=== PATIENT | female | born 2000 | race Caucasian/White ===

== ENCOUNTER 2023-09-21 21:52 | Observation (INO) | payer BC ==
[2023-09-21] MEDS ORDERED: SODIUM CHLORIDE 0.9% 1,000 ML IV STA (22:08)
[2023-09-21] MEDS ORDERED: ONDANSETRON 4 MG/2 ML VIAL IVP STA (22:13)
[2023-09-21] MEDS ORDERED: MORPHINE SULFATE 4 MG/ML SYRINGE IV STA (22:13)
[2023-09-21] MEDS ORDERED: RX INFO: IV CONTRAST WAS GIVEN 1 EACH MISC MISCELLANE PRN (22:26)
--- NOTE | 2023-09-21 22:41 | ED ---
Trauma HPI - General Source: patient Mode of arrival: wheelchair Limitations: no limitations - History of Present Illness MD Complaint: injury <Laurent Hernandes - Last Filed: 09/21/23 23:46> <Bobby Khan - Last Filed: 09/22/23 07:25> - General Chief Complaint: Chest Pain Stated Complaint: Abd injury, kicked by horse Time Seen by Provider: 09/21/23 22:08 - History of Present Illness Initial Comments: This is a 23-year-old female presents to the emergency department complaining of pain to her anterior chest wall. Patient was kicked by worse 1 hour prior to arrival. Patient states the horse got it and ended up kicking backwards. There injury. There is no head or neck injury. Denying abdominal pain. States the pain is sharp, located in the sternal area. Exacerbated by movement and breathing. No nausea or vomiting. No neck pain. No back pain. No bleeding disorders. No significant past medical history. Nonsmoker (Laurent Hernandes) - Related Data Allergies Allergy/AdvReac Type Severity Reaction Status Date / Time No Known Allergies Allergy Verified 09/21/23 21:59 Review of Systems ROS Other: All systems not noted in ROS Statement are negative. <CecilioLaurent - Last Filed: 09/21/23 23:46> ROS Other: All systems not noted in ROS Statement are negative. <Bobby Khan - Last Filed: 09/22/23 07:25> ROS Statement: Those systems with pertinent positive or pertinent negative responses have been documented in the HPI. Past Medical History Past Medical History: No Reported History History of Any Multi-Drug Resistant Organisms: None Reported Past Surgical History: No Surgical Hx Reported Past Psychological History: No Psychological Hx Reported Smoking Status: Never smoker Past Alcohol Use History: None Reported Past Drug Use History: None Reported <Laurent Hernandes - Last Filed: 09/21/23 23:46> General Exam Limitations: no limitations General appearance: alert, in distress Head exam: Present: atraumatic, normocephalic, normal inspection Eye exam: Present: normal appearance, PERRL, EOMI. Absent: scleral icterus, conjunctival injection, periorbital swelling ENT exam: Present: normal exam, mucous membranes moist, normal external ear exam. Absent: mucous membranes dry Neck exam: Present: normal inspection, full ROM. Absent: tenderness, meningismus, lymphadenopathy Respiratory exam: Present: normal lung sounds bilaterally, chest wall tenderness, other (Patient has superficial abrasions overlying the anterior chest to the bilateral parasternal injury on the superior aspect of both breasts. There is some ecchymosis. No crepitus. Tender to palpation.). Absent: respiratory distress, wheezes, rales, rhonchi, stridor, accessory muscle use, decreased breath sounds, prolonged expiratory Cardiovascular Exam: Present: regular rate, normal rhythm, normal heart sounds. Absent: systolic murmur, diastolic murmur, rubs, gallop, clicks GI/Abdominal exam: Present: soft, normal bowel sounds. Absent: distended, tenderness, guarding, rebound, rigid Extremities exam: Present: normal inspection, full ROM, normal capillary refill. Absent: tenderness, pedal edema, joint swelling, calf tenderness Back exam: Present: normal inspection Neurological exam: Present: alert, oriented X3, CN II-XII intact Psychiatric exam: Present: normal affect, normal mood Skin exam: Present: warm, dry, intact, normal color. Absent: rash <Laurent Hernandes - Last Filed: 09/21/23 23:46> - General Exam Comments Initial Comments: Vital signs stable, patient afebrile. Patient does not appear to be ill or toxic. Cranial nerves II through XII grossly intact. Alert and oriented 4. Thornton Coma Scale is 15. (Laurent Hernandes) Course <Laurent Hernandes - Last Filed: 09/21/23 23:46> Vital Signs 09/21/23 09/21/23 09/21/23 22:00 22:37 23:30 Temperature 97.6 F Pulse Rate 88 87 97 Respiratory 18 16 18 Rate Blood Pressure 118/80 122/73 116/72 O2 Sat by Pulse 98 100 100 Oximetry 09/22/23 09/22/23 09/22/23 00:00 01:00 05:46 Temperature Pulse Rate 105 H 93 87 Respiratory 20 20 18 Rate Blood Pressure 111/68 117/72 106/61 O2 Sat by Pulse 100 Oximetry - Reevaluation(s) Reevaluation #1: 09/21/23 23:25 Patient reevaluated, seems to be somewhat improved as far as pain. Patient's test did come out positive. Especially with the patient, her boy friend, as well as mother. Discussed the results of the serum test. Discussed radiation exposure, discussed the possibility of misdiagnosis without computed tomography scan. After long discussion with this. Benefits of CT scanning and imaging.. The patient and mother are requesting computed tomography scan be proceeded with. Patient was accompanied to the medical medical decisions. Discussed risks versus benefits in detail. (Laurent Hernandes) Procedures - FAST Exam Fluid in Morison's pouch: No Fluid in Splenorenal Junction: No Fluid around bladder, Transverse view: No Fluid around bladder, Sagittal view: No Limited Echocardiogram view: parasternal, subxiphoid Fluid in Pericardial Sac: No Gross Wall Motion Abnormality: No Study normal for this patient: Yes Images saved for further review: No <Laurent Hernandes - Last Filed: 09/21/23 23:46> - FAST Exam Additional Comments: Performed by me (Laurent Hernandes) Medical Decision Making - Lab Data Result diagrams: 09/21/23 22:22 09/21/23 22:22 <Laurent Hernandes - Last Filed: 09/21/23 23:46> - Lab Data Result diagrams: 09/21/23 22:22 09/21/23 22:22 <Bobby Khan - Last Filed: 09/22/23 07:25> - Medical Decision Making Was pt. sent in by a medical professional or institution? @ -[no Did you speak to anyone other than the patient for history? @ -Parents Did you review nursing and triage notes? @ -Agree Were old charts reviewed? @ -no Differential Diagnosis? @ -Differential diagnosis includes but not limited to: Sternal fracture, cartilaginous injury, chest contusion, pericardial injury, myocardial injury, cardiac tamponade, pneumothorax, given the patient's presentation, chest wall contusion most likely. EKG interpreted by me (3pts min.)? @ -[EKG independently interpreted by me at 2217 reveals sinus rhythm with a rate of 93. Baseline artifact, normal axis, normal intervals, no acute ST or T- wave changes. Normal QRS amplitude. Normal QRS morphology. No comparison study reviewed with ED attending physician. X-rays interpreted by me (1pt min.)? @ -[none] CT interpreted by me (1pt min.)? @ -[none] U/S interpreted by me (1pt. min.)? @ -[none] What testing was considered but not performed? (CT, X-rays, U/S, labs)? Why? @ [CT, X-rays, U/S, labs? Why?] What meds were considered but not given? Why? @ -[none] Did you discuss the management of the patient with other professionals? @ -[professionals i.e. Dr, PA, BAKER APPRENTICE, Lab, RT, Psych Nurse, Chemical Laboratory Assistant, Dental Patient Coordinator, Teacher, Drug Discovery Informatics Specialist, case operator? Give summary] Did you reconcile home meds? @ -[none] Was smoking cessation discussed for >3mins.? @ -[none] Was critical care preformed (if so, how long)? @ -[none] Were there social determinants of health that impacted care today? How? (Homelessness, low income, unemployed, alcoholism, drug addiction, transportation, low edu. Level, literacy, decrease access to med. care, halfway, rehab)? @ -[Homelessness, low income, unemployed, alcoholism, drug addiction, transportation, low edu. Level, literacy, decrease access to med. care, halfway, rehab?] Was there de-escalation of care discussed even if they declined? (Discuss DNR or withdrawal of care, Hospice)? @ -[Discuss DNR or withdrawal of care, Hospice?] What co-morbidities impacted this encounter? (DM, HTN, Smoking, COPD, CAD, Cancer, CVA, Hep., AIDS, mental health diagnosis, sleep apnea, morbid obesity)? @ -[DM, HTN, Smoking, COPD, CAD, Cancer, CVA, Hep., AIDS, mental health diagnosis, sleep apnea, morbid obesity?] Was patient admitted / discharged? @ -[hospital course] Undiagnosed new problem with uncertain prognosis? @ -[none] Drug Therapy requiring intensive monitoring for toxicity (Heparin, Nitro, Insulin, Cardizem)? @ -[none] Were any procedures done? @ -[none] Diagnosis/symptom? @ -[default] Acute, or Chronic, or Acute on Chronic? @ -[default] Uncomplicated (without systemic symptoms) or Complicated (systemic symptoms)? @ -[default] Side effects of treatment? @ -[none] Exacerbation, Progression, or Severe Exacerbation] @ -[no] Poses a threat to life or bodily function? @ -[no] Case discussed in detail with Dr. Khan. Patient will be endorsed to him for further evaluation, treatment, and disposition. (Laurent Hernandes) Receive this patient as sign out pending results of the computed tomography scan. After the computed tomography scan was completed, patient found to have sternal fracture, small amount of blood in anterior mediastinum and trace pneumothorax. Case is discussed with cardiothoracic surgery, they would like patient admitted to have echocardiogram and serial troponins, patient be admitted under surgery with CT consult. (Bobby Khan) - Lab Data Lab Results 09/21/23 09/21/23 09/21/23 Range/Units 22:22 22:22 22: WBC 7.9 (3.8-10.6) k/uL RBC 4.09 (3.80-5.40) m/uL Hgb 12.3 (11.4-16.0) gm/dL Hct 35.4 (34.0-46.0) % MCV 86.5 (80.0-100.0) fL MCH 30.0 (25.0-35.0) pg MCHC 34.7 (31.0-37.0) g/dL RDW 12.0 (11.5-15.5) % Plt Count 170 (150-450) k/uL MPV 8.3 Neutrophils % 69 % Lymphocytes % 22 % Monocytes % 6 % Eosinophils % 2 % Basophils % 0 % Neutrophils # 5.5 (1.3-7.7) k/uL Lymphocytes # 1.7 (1.0-4.8) k/uL Monocytes # 0.5 (0-1.0) k/uL Eosinophils # 0.1 (0-0.7) k/uL Basophils # 0.0 (0-0.2) k/uL PT 11.3 (10.0-12.5) sec INR 1.0 (<1.2) APTT 21.5 L (22.0-30.0) sec Sodium 134 L (137-145) mmol/L Potassium 3.6 (3.5-5.1) mmol/L Chloride 101 (98-107) mmol/L Carbon Dioxide 23 (22-30) mmol/L Anion Gap 10 mmol/L BUN 14 (7-17) mg/dL Creatinine 0.79 (0.52-1.04) mg/dL Est GFR (CKD-EPI)AfAm >90 (>60 ml/min/1.73 sqM) Est GFR (CKD-EPI)NonAf >90 (>60 ml/min/1.73 sqM) Glucose 109 H (74-99) mg/dL Calcium 9.1 (8.4-10.2) mg/dL Magnesium 1.8 (1.6-2.3) mg/dL Total Bilirubin 0.7 (0.2-1.3) mg/dL AST 24 (14-36) U/L ALT 19 (4-34) U/L Alkaline Phosphatase 40 (38-126) U/L Troponin I (0.000-0.034) ng/mL Total Protein 6.8 (6.3-8.2) g/dL Albumin 4.1 (3.5-5.0) g/dL Lipase 171 (23-300) U/L HCG, Qual Detected 09/21/23 Range/Units 22:22 WBC (3.8-10.6) k/uL RBC (3.80-5.40) m/uL Hgb (11.4-16.0) gm/dL Hct (34.0-46.0) % MCV (80.0-100.0) fL MCH (25.0-35.0) pg MCHC (31.0-37.0) g/dL RDW (11.5-15.5) % Plt Count (150-450) k/uL MPV Neutrophils % % Lymphocytes % % Monocytes % % Eosinophils % % Basophils % % Neutrophils # (1.3-7.7) k/uL Lymphocytes # (1.0-4.8) k/uL Monocytes # (0-1.0) k/uL Eosinophils # (0-0.7) k/uL Basophils # (0-0.2) k/uL PT (10.0-12.5) sec INR (<1.2) APTT (22.0-30.0) sec Sodium (137-145) mmol/L Potassium (3.5-5.1) mmol/L Chloride (98-107) mmol/L Carbon Dioxide (22-30) mmol/L Anion Gap mmol/L BUN (7-17) mg/dL Creatinine (0.52-1.04) mg/dL Est GFR (CKD-EPI)AfAm (>60 ml/min/1.73 sqM) Est GFR (CKD-EPI)NonAf (>60 ml/min/1.73 sqM) Glucose (74-99) mg/dL Calcium (8.4-10.2) mg/dL Magnesium (1.6-2.3) mg/dL Total Bilirubin (0.2-1.3) mg/dL AST (14-36) U/L ALT (4-34) U/L Alkaline Phosphatase (38-126) U/L Troponin I <0.012 (0.000-0.034) ng/mL Total Protein (6.3-8.2) g/dL Albumin (3.5-5.0) g/dL Lipase (23-300) U/L HCG, Qual Disposition <Laurent Hernandes - Last Filed: 09/21/23 23:46> Is patient prescribed a controlled substance at d/c from ED?: No <Bobby Khan - Last Filed: 09/22/23 07:25> Clinical Impression: Blunt chest trauma, Fracture, sternum closed, Pneumothorax Disposition: ADMITTED IP TO THIS HOSP Condition: Fair
[2023-09-21 22:47] LABS: Basophils % (A) 0 %; Eosinophils % (A) 2 %; HCT 35.4 % (34.0-46.0); HGB 12.3 gm/dL (11.4-16.0); Lymphocytes # (A) 1.7 k/uL (1.0-4.8); Lymphocytes % (A) 22 %; MCHC 34.7 g/dL (31.0-37.0); MCV 86.5 fL (80.0-100.0); Mean Platelet Volume 8.3; Monocytes % (A) 6 %; Neutrophils # (A) 5.5 k/uL (1.3-7.7); Neutrophils % (A) 69 %; Platelet Count 170 k/uL (150-450); RBC 4.09 m/uL (3.80-5.40); WBC 7.9 k/uL (3.8-10.6)
[2023-09-21 22:48] LABS: Eosinophils # (A) 0.1 k/uL (0-0.7); Monocytes # (A) 0.5 k/uL (0-1.0)
[2023-09-21 22:56] LABS: HCG,Qualitative Serum Detected
[2023-09-21 22:57] LABS: ALT 19 U/L (4-34); AST 24 U/L (14-36); African American GFR (CKD) >90 (>60 ml/min/1.73 sqM); Albumin 4.1 g/dL (3.5-5.0); Alkaline Phosphatase 40 U/L (38-126); Anion Gap 10 mmol/L; Blood Urea Nitrogen 14 mg/dL (7-17); Calcium 9.1 mg/dL (8.4-10.2); Carbon Dioxide 23 mmol/L (22-30); Chloride 101 mmol/L (98-107); Glucose 109 mg/dL (74-99); Lipase 171 U/L (23-300); Magnesium 1.8 mg/dL (1.6-2.3); Non-African American GFR(CKD) >90 (>60 ml/min/1.73 sqM); Potassium 3.6 mmol/L (3.5-5.1); Sodium 134 mmol/L (137-145); Total Bilirubin 0.7 mg/dL (0.2-1.3); Total Protein 6.8 g/dL (6.3-8.2)
[2023-09-21 23:06] LABS: Prothrombin Time 11.3 sec (10.0-12.5)
[2023-09-21 23:07] LABS: Partial Thromboplastin Time 21.5 sec (22.0-30.0)
[2023-09-22] MEDS ORDERED: MORPHINE SULFATE 4 MG/ML SYRINGE IVP STA (01:18)
--- NOTE | 2023-09-22 01:49 | CT ---
EXAM: CT Chest With Intravenous Contrast CLINICAL HISTORY: ITS.REASON CT Reason: chest wall trauma TECHNIQUE: Axial computed tomography images of the chest with intravenous contrast. CTDI is 5.5 mGy and DLP is 245.6 mGy-cm. This CT exam was performed using one or more of the following dose reduction techniques: automated exposure control, adjustment of the mA and/or kV according to patient size, and/or use of iterative reconstruction technique. COMPARISON: None FINDINGS: Lungs: Linear densities with surrounding groundglass opacities extending vertically throughout the medial anterior aspects of the upper lobes. Injury such as laceration could not be excluded. Pleural space: Trace right apical pneumothorax. No significant effusion. Heart: Unremarkable. No cardiomegaly. No significant pericardial effusion. No significant coronary artery calcifications. Mediastinum: Small amount of blood in the anterior mediastinum. Bones/joints: Nondisplaced acute fracture of the sternum. No dislocation. Soft tissues: Mild soft tissue swelling overlying the sternum. Vasculature: Unremarkable. No thoracic aortic aneurysm. Lymph nodes: Unremarkable. No enlarged lymph nodes. IMPRESSION: 1. Nondisplaced acute fracture of the sternum. Small amount of blood in the anterior mediastinum. Mild soft tissue swelling overlying the sternum. 2. Trace right apical pneumothorax. 3. Linear densities with surrounding groundglass opacities extending vertically throughout the medial anterior aspects of the upper lobes. Injury such as laceration could not be excluded. <MYCVCSECTION> Communications: 09/22/23 01:50 Call Doctor Regarding Pneumothorax, called Dr. Manrique on 09/22 01:50 (-05:00)
[2023-09-22] MEDS ORDERED: ONDANSETRON 4 MG/2 ML VIAL IVP PRN (05:25)
[2023-09-22] MEDS ORDERED: NALOXONE 0.4 MG/ML 1 ML VIAL IV PRN (05:25)
[2023-09-22] MEDS ORDERED: MORPHINE SULFATE 4 MG/ML SYRINGE IV STA (05:29)
[2023-09-22] MEDS: SODIUM CHLORIDE 0.9% 1,000 ML IV SCH ×2 (08:27→18:12)
[2023-09-22] MEDS: MORPHINE SULFATE 4 MG/ML SYRINGE IV PRN ×2 (08:32→13:40)
--- NOTE | 2023-09-22 09:39 | P.GSHP ---
History of Present Illness H&P Date: 09/22/23 Chief Complaint: Sternal fracture This is a 23-year-old female who was admitted through the emergency room last night when Dr. Murphy was on-call. Patient was kicked by a horse. She was worked up emergency room found have evidence of a sternal fracture. Patient's troponins have been trending downwards. Patient will be seen by [place] thoracic surgery today. Past Medical History Past Medical History: No Reported History History of Any Multi-Drug Resistant Organisms: None Reported Past Surgical History: No Surgical Hx Reported Past Psychological History: No Psychological Hx Reported Smoking Status: Never smoker Past Alcohol Use History: None Reported Past Drug Use History: None Reported Medications and Allergies Allergies Allergy/AdvReac Type Severity Reaction Status Date / Time No Known Allergies Allergy Verified 09/21/23 21:59 Surgical - Exam Vital Signs Temp Pulse Resp BP Pulse Ox 97.6 F 88 18 118/80 98 09/21/23 22:00 09/21/23 22:00 09/21/23 22:00 09/21/23 22:00 09/21/23 22:00 - General well developed, well nourished, no distress - Eyes PERRL - ENT normal pinna - Neck no masses - Respiratory There is a and abrasion across the mid sternal area. normal expansion - Cardiovascular Rhythm: regular - Abdomen Abdomen: soft, non tender Results - Labs 09/21/23 22:22 09/21/23 22:22 Abnormal Lab Results - Last 24 Hours (Table) 09/21/23 09/21/23 09/22/23 Range/Units 22:22 22:22 05:47 APTT 21.5 L (22.0-30.0) sec Sodium 134 L (137-145) mmol/L Glucose 109 H (74-99) mg/dL Troponin I 0.052 H* (0.000-0.034) ng/mL 09/22/23 Range/Units 08:37 APTT (22.0-30.0) sec Sodium (137-145) mmol/L Glucose (74-99) mg/dL Troponin I 0.037 H* (0.000-0.034) ng/mL Diabetes panel 09/21/23 Range/Units 22:22 Sodium 134 L (137-145) mmol/L Potassium 3.6 (3.5-5.1) mmol/L Chloride 101 (98-107) mmol/L Carbon Dioxide 23 (22-30) mmol/L BUN 14 (7-17) mg/dL Creatinine 0.79 (0.52-1.04) mg/dL Glucose 109 H (74-99) mg/dL Calcium 9.1 (8.4-10.2) mg/dL AST 24 (14-36) U/L ALT 19 (4-34) U/L Alkaline Phosphatase 40 (38-126) U/L Total Protein 6.8 (6.3-8.2) g/dL Albumin 4.1 (3.5-5.0) g/dL Calcium panel 09/21/23 Range/Units 22:22 Calcium 9.1 (8.4-10.2) mg/dL Albumin 4.1 (3.5-5.0) g/dL Pituitary panel 09/21/23 Range/Units 22:22 Sodium 134 L (137-145) mmol/L Potassium 3.6 (3.5-5.1) mmol/L Chloride 101 (98-107) mmol/L Carbon Dioxide 23 (22-30) mmol/L BUN 14 (7-17) mg/dL Creatinine 0.79 (0.52-1.04) mg/dL Glucose 109 H (74-99) mg/dL Calcium 9.1 (8.4-10.2) mg/dL Adrenal panel 09/21/23 Range/Units 22:22 Sodium 134 L (137-145) mmol/L Potassium 3.6 (3.5-5.1) mmol/L Chloride 101 (98-107) mmol/L Carbon Dioxide 23 (22-30) mmol/L BUN 14 (7-17) mg/dL Creatinine 0.79 (0.52-1.04) mg/dL Glucose 109 H (74-99) mg/dL Calcium 9.1 (8.4-10.2) mg/dL Total Bilirubin 0.7 (0.2-1.3) mg/dL AST 24 (14-36) U/L ALT 19 (4-34) U/L Alkaline Phosphatase 40 (38-126) U/L Total Protein 6.8 (6.3-8.2) g/dL Albumin 4.1 (3.5-5.0) g/dL - Imaging Additional studies: Fracture of sternum Assessment and Plan Assessment: Sternal fracture after trauma by a horse kick. Patient will be evaluated by cardiovascular thoracic surgery today. She may be discharged home if they feel she is stable with a brace.
--- NOTE | 2023-09-22 10:21 | P.GSCN ---
History of Present Illness Consult date: 09/22/23 Reason for Consult: Sternal fracture, traumatic, status post getting kicked by a horse Requesting physician: Bobby Khan History of present illness: This is a 23-year-old female patient who does not follow with a primary care physician on a regular basis. She has a past medical history significant for pneumonia at age 8, daily vaping and rare EtOH use. The patient presented to the emergency department here at [facility], with complaints of chest pain and shortness of breath. According to the patient she was riding her horse with a friend and her horse bit the other horse and subsequently the other horse kicked the patient in the chest. She denies any loss of consciousness, headache, fever, chills, nausea, vomiting, lightheadedness, hemoptysis, hematemesis, presyncope, syncope, loss of bowel or bladder function, constipation or diarrhea. On admission an EKG was completed which showed normal sinus rhythm heart rate 93 BPM. Laboratory results showed a WBC count of 7.9, hemoglobin 12.3, hematocrit 35.4, platelets 170, PT 11.3, INR 1.0, PTT 21.5, sodium 134, potassium 3.6, BUN 14, creatinine 0.79, glucose 109, magnesium 1.8, serial troponins showed less than 0.012, 0.052 and trending down to 0.037. The patient also had a hCG test completed which showed detected. Subsequently due to the patient's above-mentioned complaints and traumatic injury to her chest a computed tomography scan of the chest was completed for further evaluation. The results of the computed tomography scan showed a nondisplaced acute fracture of the sternum, small amount of blood in the anterior mediastinum, mild soft tissue swelling overlying the sternum, trace right apical pneumothorax, and linear densities with surrounding groundglass opacities extending vertically throughout the medial anterior aspect of the upper lobes. Due to the patient's traumatic injury and findings on the computed tomography scan of the chest a consult was placed to Dr. Luis Felipe Shaffer from cardiothoracic surgery for further evaluation and treatment recommendations. Review of Systems A 14 point review of systems was completed and was negative except as mentioned in the HPI. Past Medical History Past Medical History: No Reported History, Pneumonia (at age 8) History of Any Multi-Drug Resistant Organisms: None Reported Past Surgical History: No Surgical Hx Reported Past Anesthesia/Blood Transfusion Reactions: No Reported Reaction Past Psychological History: No Psychological Hx Reported Smoking Status: Vaper Past Alcohol Use History: Rare Past Drug Use History: None Reported - Past Family History Mother Family Medical History: No Reported History Father Family Medical History: Hypertension Medications and Allergies Home Medications Medication Instructions Recorded Confirmed Type Acetaminophen Tab [Tylenol] 650 mg PO Q6H #30 tab 09/22/23 Rx Ibuprofen [Motrin] 600 mg PO Q6HR PRN #40 tab 09/22/23 Rx oxyCODONE HCL [OxyIR] 5 mg PO Q6H PRN 3 Days #10 tab 09/22/23 Rx Allergies Allergy/AdvReac Type Severity Reaction Status Date / Time No Known Allergies Allergy Verified 09/21/23 21:59 Surgical - Exam Vital Signs Temp Pulse Resp BP Pulse Ox 97.6 F 88 18 118/80 98 09/21/23 22:00 09/21/23 22:00 09/21/23 22:00 09/21/23 22:00 09/21/23 22:00 - General well developed, well nourished, no distress, moderate pain (2 her chest) - Eyes PERRL, normal ocular movement, no pale, no icteric - ENT normal pinna, normal nares, normal mucosa, no hearing loss, no congestion - Neck Neck is supple, no lymphadenopathy no masses, no bruits, trachea midline, no venous distension - Respiratory Lungs sounds essentially clear throughout. No wheezes, rhonchi or crackles. Respirations are symmetrical and nonlabored. - Cardiovascular Regular rhythm and rate. S1 and S2 present, negative for S3, gallop or murmur. - Abdomen Abdomen is soft, nontender nondistended. Active bowel sounds present in all 4 abdominal quadrants. No guarding or rigidity. - Genitourinary Deferred - Rectum Deferred - Integumentary Skin is warm and dry. No clubbing or cyanosis is present. Abrasions to her chest present, clean and dry no rash, no growths, no abnormal pigmentation - Neurologic Cranial nerves II through XII intact, no focal deficits. normal coordination, normal sensation - Musculoskeletal Moves all 4 extremities with equal strength bilateral. Pain to her sternum with sitting up and taking a deep breath - Psychiatric oriented to time, oriented to person, oriented to place, speech is normal, memory intact Results - Labs 09/21/23 22:22 09/21/23 22:22 Abnormal Lab Results - Last 24 Hours (Table) 09/21/23 09/21/23 09/22/23 Range/Units 22:22 22:22 05:47 APTT 21.5 L (22.0-30.0) sec Sodium 134 L (137-145) mmol/L Glucose 109 H (74-99) mg/dL Troponin I 0.052 H* (0.000-0.034) ng/mL 09/22/23 Range/Units 08:37 APTT (22.0-30.0) sec Sodium (137-145) mmol/L Glucose (74-99) mg/dL Troponin I 0.037 H* (0.000-0.034) ng/mL Diabetes panel 09/21/23 Range/Units 22:22 Sodium 134 L (137-145) mmol/L Potassium 3.6 (3.5-5.1) mmol/L Chloride 101 (98-107) mmol/L Carbon Dioxide 23 (22-30) mmol/L BUN 14 (7-17) mg/dL Creatinine 0.79 (0.52-1.04) mg/dL Glucose 109 H (74-99) mg/dL Calcium 9.1 (8.4-10.2) mg/dL AST 24 (14-36) U/L ALT 19 (4-34) U/L Alkaline Phosphatase 40 (38-126) U/L Total Protein 6.8 (6.3-8.2) g/dL Albumin 4.1 (3.5-5.0) g/dL Calcium panel 09/21/23 Range/Units 22:22 Calcium 9.1 (8.4-10.2) mg/dL Albumin 4.1 (3.5-5.0) g/dL Pituitary panel 09/21/23 Range/Units 22:22 Sodium 134 L (137-145) mmol/L Potassium 3.6 (3.5-5.1) mmol/L Chloride 101 (98-107) mmol/L Carbon Dioxide 23 (22-30) mmol/L BUN 14 (7-17) mg/dL Creatinine 0.79 (0.52-1.04) mg/dL Glucose 109 H (74-99) mg/dL Calcium 9.1 (8.4-10.2) mg/dL Adrenal panel 09/21/23 Range/Units 22:22 Sodium 134 L (137-145) mmol/L Potassium 3.6 (3.5-5.1) mmol/L Chloride 101 (98-107) mmol/L Carbon Dioxide 23 (22-30) mmol/L BUN 14 (7-17) mg/dL Creatinine 0.79 (0.52-1.04) mg/dL Glucose 109 H (74-99) mg/dL Calcium 9.1 (8.4-10.2) mg/dL Total Bilirubin 0.7 (0.2-1.3) mg/dL AST 24 (14-36) U/L ALT 19 (4-34) U/L Alkaline Phosphatase 40 (38-126) U/L Total Protein 6.8 (6.3-8.2) g/dL Albumin 4.1 (3.5-5.0) g/dL - Imaging CT scan - chest: report reviewed, image reviewed Assessment and Plan Assessment: Traumatic sternal fracture, after being kicked by a horse Chronic ongoing vaping History of pneumonia at age 8 Rare EtOH use Plan: The patient was seen and examined at her bedside in the emergency department. Her boyfriend is present at her bedside. Her chart and diagnostics were reviewed. Her case was discussed in detail with Dr. Luis Felipe Shaffer from [facility] surgery. No surgical intervention is warranted at this time. We will obtain a transthoracic 2-D echocardiogram, awaiting results. Troponins are trending down. Repeat chest x-ray in the a.m. to monitor pneumothorax. Encourage use of incentive spirometry 10 times every hour while awake. We will place a heart hugger in place for sternal support. Pain control per core when necessary orders. Discussed the importance of risk modification including cessation of vaping. More recommendations to follow based on patient's clinical course. Thank you for this consult and we look forward to working with you in the care of this patient. I have personally seen and examined the patient, performed the documentation and the assessment and plan as written. 30 minutes spent on the visit . Kashif FRANCO
[2023-09-22] MEDS: FAMOTIDINE 20 MG TAB PO SCH ×2 (11:45→19:44)
--- NOTE | 2023-09-22 14:28 | CA ---
Transthoracic Echo Report Name: Guerline Bacon Age: 23 Gender: F : 2000 Exam Date: 09/22/2023 08:35 Exam Location: [facility] Ht (in): 70 Wt (lb): 130 Ordering Physician: Bobby Khan MD Attending/Referring Phys: Fluorescent Lighting Model Maker Marbella Bethea RDCS Procedure CPT: Indications: sternal trauma Cardiac Hx: Technical Quality: Fair Contrast 1: Total Dose (mL): Contrast 2: Total Dose (mL): MEASUREMENTS (Male / Female) Normal Values 2D ECHO LV Diastolic Diameter PLAX 3.5 cm 4.2 - 5.9 / 3.9 - 5.3 cm LV Systolic Diameter PLAX 2.4 cm IVS Diastolic Thickness 0.8 cm 0.6 - 1.0 / 0.6 - 0.9 cm LVPW Diastolic Thickness 1.0 cm 0.6 - 1.0 / 0.6 - 0.9 cm LV Relative Wall Thickness 0.5 RV Internal Dim ED PLAX 1.8 cm LA Volume 44.0 cm??? 18 - 58 / 22 - 52 cm??? LA Volume Index 26.0 cm???/m??? 16 - 28 cm???/m??? M-MODE Aortic Root Diameter MM 2.0 cm LA Systolic Diameter MM 3.4 cm LA Ao Ratio MM 1.7 DOPPLER AV Peak Velocity 135.0 cm/s AV Peak Gradient 7.3 mmHg AV Mean Velocity 96.7 cm/s AV Mean Gradient 4.1 mmHg AV Velocity Time Integral 26.5 cm LVOT Peak Velocity 122.4 cm/s LVOT Peak Gradient 6.0 mmHg LVOT Velocity Time Integral 26.0 cm MV Area PHT 3.6 cm??? Mitral E Point Velocity 103.2 cm/s Mitral A Point Velocity 52.8 cm/s Mitral E to A Ratio 2.0 MV Deceleration Time 212.7 ms MV E' Velocity 13.8 cm/s Mitral E to MV E' Ratio 7.5 TR Peak Velocity 207.3 cm/s TR Peak Gradient 17.2 mmHg Right Ventricular Systolic Press 22.2 mmHg FINDINGS Left Ventricle Normal Left ventricular size, wall thickness, systolic function with no obvious regional wall motion abnormalities. Normal Left ventricular diastolic filling pattern. Left ventricular ejection fraction is estimated at 55-60%. Right Ventricle Normal right ventricular size and function. Right ventricular systolic pressure within normal limits. Right Atrium Normal right atrial size. Left Atrium Normal left atrial size. Mitral Valve Structurally normal mitral valve. No mitral stenosis, regurgitation or prolapse. Aortic Valve Trileaflet aortic valve. No aortic valve stenosis or regurgitation. Tricuspid Valve Structurally normal tricuspid valve. Mild tricuspid regurgitation. Pulmonic Valve Structurally normal pulmonic valve. Pericardium Small Loculated pericardial effusion near the Myton. Aorta Normal size aortic root and proximal ascending aorta. CONCLUSIONS Normal LV systolic function Poorly visualized right ventricle Overall normal intracardiac valves Small loculated pericardial effusion near the apex versus fat pad Previewed by: Dr. Abelardo Tyson MD (Electronically Signed) Final Date: 22 September 2023 14:27
[2023-09-22] MEDS: ACETAMINOPHEN TAB 325 MG TAB PO PRN (16:57)
[2023-09-23] MEDS: ACETAMINOPHEN TAB 325 MG TAB PO PRN (03:56)
[2023-09-23] MEDS: HYDROcodone/APAP 5-325MG 1 EACH TAB PO PRN ×2 (05:06→10:41)
[2023-09-23 05:22] VITALS: RESP 20
--- NOTE | 2023-09-23 07:57 | XR ---
EXAMINATION TYPE: XR chest 1V portable DATE OF EXAM: 09/23/2023 COMPARISON: NONE HISTORY: Pneumothorax follow-up. TECHNIQUE: Single frontal view of the chest is obtained. FINDINGS: There is no focal air space opacity, pleural effusion, or pneumothorax seen. The cardiac silhouette size is within normal limits. The osseous structures are intact. IMPRESSION: 1. Sizable pneumothorax is not identified at this time.
--- NOTE | 2023-09-23 08:04 | P.PN ---
Subjective Progress Note Date: 09/23/23 Principal diagnosis: Traumatic sternal fracture, . History of chronic ongoing vaping, remote pneumonia, rare etoh use The patient was seen and examined this morning sitting up in bed sleeping on the cardiac stepdown unit in no acute distress. Remains in sinus rhythm, currently on room air with oxygen saturation 100%. Patient had pain control issues last night but was given norco and was finally able to get sleep. CXR reviewed, stable. TTE reviewed, stable. No other new concerns. Objective - Vital Signs Vital signs: Vital Signs Temp 98.4 F 09/23/23 00:00 Pulse 74 09/23/23 04:00 Resp 20 09/23/23 04:00 BP 118/76 09/23/23 04:00 Pulse Ox 100 09/23/23 04:00 FiO2 Intake & Output 09/22/23 09/23/23 09/23/23 18:59 06:59 18:59 Intake Total 0 1185 Balance 0 1185 Weight 58.967 kg Intake: Intake, IV Titration 825 Amount Sodium Chloride 0.9% 1, 825 000 ml @ 75 mls/hr IV . [id number] MIGUEL ÁNGEL Rx#:[id number] Oral 0 360 Other: # Voids 2 - Exam CONSTITUTIONAL: Appears comfortable, no acute distress, RESPIRATORY: Lungs sounds clear bilaterally. Respirations even, nonlabored. Currently on room air with oxygen saturation 100%. Able to achieve 1000 mL on incentive spirometry per nursing CARDIOVASCULAR: S1, S2 present. Regular rate and rhythm, sinus rhythm on telemetry. Palpable peripheral pulses bilaterally. No edema present GASTROINTESTINAL: Abdomen soft, nontender, nondistended. Active bowel sounds present 4 quadrants GENITOURINARY: Continues to void INTEGUMENTARY: Skin is warm and dry NEUROLOGIC: Cranial nerves II through XII intact - Allied health notes Allied health notes reviewed: nursing - Labs CBC & Chem 7: 09/21/23 22:22 09/21/23 22:22 Labs: Abnormal Lab Results - Last 24 Hours (Table) 09/22/23 09/22/23 Range/Units 05:47 08:37 Troponin I 0.052 H* 0.037 H* (0.000-0.034) ng/mL - Imaging and Cardiology Chest x-ray: report reviewed, image reviewed Assessment and Plan Assessment: Traumatic sternal fracture Positive test Chronic ongoing vaping Remote pneumonia Rare etoh use Plan: Discussed with Dr. Shaffer, no surgical intervention planned Encourage incentive spirometry use Increase activity as tolerated Pain control per trauma services CXR, echo reviewed Reinforce vaping cessation Medical management per trauma Patient stable for discharge from our standpoint with adequate pain control and reminders to use incentive spirometer
[2023-09-23] MEDS: FAMOTIDINE 20 MG TAB PO SCH (08:33)
[2023-09-23] MEDS: SODIUM CHLORIDE 0.9% 1,000 ML IV SCH (08:34)
[2023-09-23 09:18] VITALS: BP 101/63; PULSE 90; TEMP 98.2
--- NOTE | 2023-09-23 09:48 | P.DS ---
Providers Date of admission: 09/22/23 05:25 Expected date of discharge: 09/23/23 Attending physician: Sheba Mandujano Consults: 09/22/23 05:25 Consult Physician Routine Consulting Provider: Luis Felipe Shaffer Consult Reason/Comments: sternal fracture Do you want consulting provider notified?: Already Contacted Primary care physician: Stated None Hospital Course: Is a 23-year-old female who was admitted to the hospital after being kicked by horse. Patient sustained a sternal fracture. Patient was seen by cardiothoracic surgery. Patient states she feels better today. She has minimal Charles pain. Patient Condition at Discharge: Good Plan - Discharge Summary Discharge Rx Participant: No New Discharge Prescriptions: New Ibuprofen [Motrin] 600 mg PO Q6HR PRN #40 tab PRN Reason: Pain oxyCODONE HCL [OxyIR] 5 mg PO Q6H PRN 3 Days #10 tab PRN Reason: Pain Acetaminophen Tab [Tylenol] 650 mg PO Q6H #30 tab Discharge Medication List Acetaminophen Tab [Tylenol] 650 mg PO Q6H #30 tab 09/22/23 [Rx] Ibuprofen [Motrin] 600 mg PO Q6HR PRN #40 tab 09/22/23 [Rx] oxyCODONE HCL [OxyIR] 5 mg PO Q6H PRN 3 Days #10 tab 09/22/23 [Rx] Follow up Appointment(s)/Referral(s): None,Stated [Primary Care Provider] - 1-2 days Luis Felipe Shaffer MD [STAFF PHYSICIAN] - 1 Week Discharge Disposition: HOME SELF-CARE
== END 2023-09-23 11:06 | disposition home or self-care (01) ==
LOC: EC 21:52 → 3SCARD 09-22 05:25
PROVIDERS: ADMIT Surgery Plastic and Reconstructive Surgery; ATTEND Surgery Plastic and Reconstructive Surgery
DX: S22.20XA Unspecified fracture of sternum, initial encounter for closed fracture (principal); S27.0XXA Traumatic pneumothorax, initial encounter; F17.290 Nicotine dependence, other tobacco product, uncomplicated; W55.12XA Struck by horse, initial encounter; Z32.01 Encounter for pregnancy test, result positive; Z87.01 Personal history of pneumonia (recurrent); Z82.49 Family history of ischemic heart disease and other diseases of the circulatory system
CPT/HCPCS: 96376; 96361; 96374; 96375; 99285; 36415; 93005; 93306; 80053; 83690; 83735; 84484 ×2; 85025; 85610; 85730; 84703; 71045; 71260; G0378 ×2; J2270 ×2; J2405; Q9967

== ENCOUNTER 2024-02-06 21:48 | Emergency (ER) | payer BC ==
--- NOTE | 2024-02-06 22:22 | XR ---
EXAMINATION TYPE: XR chest 1V DATE OF EXAM: 02/06/2024 COMPARISON: Prior chest x-ray September 23, 2023 HISTORY: Chest pain after trauma TECHNIQUE: Single frontal view of the chest is obtained. FINDINGS: There is no focal air space opacity, pleural effusion, or pneumothorax seen. The cardiac silhouette size is stable and within normal limits. Overlying bra strap and EKG leads are in current study. The osseous structures are intact. IMPRESSION: No acute process.
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
[2024-02-06] MEDS: HYDROmorphone 1 MG/ML 1 ML SYRINGE IVP STA (22:30)
[2024-02-06] MEDS: SODIUM CHLORIDE 0.9% 1,000 ML IV STA (22:52)
--- NOTE | 2024-02-06 23:05 | CT ---
EXAMINATION TYPE: CT brain cspine wo con DATE OF EXAM: 02/06/2024 COMPARISON: NONE HISTORY: Pt states fall from horse then horse landed on back. Horse also stepped on her lower abdomen . Pt states positive LOC. Pt admits to hitting head on the ground. Pt also admits to palpitations. CT DLP: 1296.1 mGycm. Automated Exposure Control for Dose Reduction was Utilized. TECHNIQUE: CT scan of the head and cervical spine are performed without contrast. FINDINGS: There is no acute intracranial hemorrhage, mass effect, or midline shift identified. The ventricles and sulci are within normal limits in size. Plata-white matter differentiation is maintai jaylin. The globes are intact and the visualized sinuses are clear. The calvarium is intact. No suspicio us opacification mastoid air cells. Cervical spine is visualized in its entirety from C1 through upper thoracic levels and demonstrates s atisfactory alignment without evidence of acute fracture or dislocation. Prevertebral soft tissue ap pears within normal limits. The C1-C2 articulation is within normal limits on the coronal images. V ertebral body and disc space heights are within normal limits. Spinal canal is preserved. IMPRESSION: 1. There is no acute fracture or dislocation evident in the cervical spine. 2. No acute intracranial hemorrhage, mass effect, or midline shift is seen.
--- NOTE | 2024-02-06 23:15 | CT ---
EXAMINATION TYPE: CT ChestAbdPelvis w con, CT lumbar spine w con DATE OF EXAM: 02/06/2024 COMPARISON: Prior chest CT September 21, 2023 HISTORY: Pt states fall from horse then horse landed on back. Horse also stepped on her lower abdomen . Pt states positive LOC. Pt admits to hitting head on the ground. Pt also admits to palpitations. CT DLP: 867.7 (accession [id number]), combined dlp w/ CAP (accession [id number]) mGycm. Automated Exposur e Control for Dose Reduction was Utilized. CONTRAST: CT scan of the thorax, abdomen and pelvis and lumbar spine are performed with IV Contrast, patient in jected with 100 mL of Isovue 300. FINDINGS: LUNGS: The lungs are grossly clear, there is no concerning parenchymal mass or nodule identified. T here is no pleural effusion or pneumothorax seen. The tracheobronchial tree is patent. MEDIASTINUM: There are no greater than 1 cm hilar or mediastinal lymph nodes. No cardiomegaly or pe ricardial effusion is seen. LIVER/GB: No significant abnormality is appreciated. PANCREAS: No significant abnormality is seen. SPLEEN: No significant abnormality is seen. ADRENALS: No significant abnormality is seen. KIDNEYS: Symmetric cortical medullary uptake and excretion without hydronephrosis seen bilaterally. BOWEL: No significant abnormality is seen. GENITAL ORGANS: Anteverted uterus projects right of midline. Vertical oriented gas-filled structure i n the vaginal canal corresponds to a tampon. LYMPH NODES: No greater than 1cm abdominal or pelvic lymph nodes are appreciated. OSSEOUS STRUCTURES: No significant abnormality is seen. OTHER: No significant additional abnormality is seen. Lumbar spine: There are 5 lumbar-type vertebra. Acute minimally displaced fractures through the left L2 and L3 transverse processes and tip of the L4 transverse process. No significant adjacent acute he morrhage. No additional acute fracture or dislocation in the lumbar spine. Vertebral body heights and disc space heights are within normal limits. Spinal canal is preserved. IMPRESSION: 1. Acute minimally displaced fractures through the left L2-L4 transverse processes. 2. No additional acute post traumatic finding in the thorax abdomen or pelvis in particular no additi onal acute osseous fracture, abnormal fluid collection, or evidence of solid organ injury in the thor ax, abdomen, or pelvis.
[2024-02-07] MEDS: ONDANSETRON 4 MG ODT STARTER PACK 2 TAB BTL PO STA (00:19)
[2024-02-07] MEDS: traMADol 50 MG STARTER PACK 3 TAB BTL PO STA (00:19)
[2024-02-07] MEDS: ACET/COD 300 MG/30 MG STARTER PACK 6 TAB BTL PO STA (00:19)
[2024-02-07] MEDS: IBUPROFEN 600 MG STARTER PACK 4 TAB BTL PO STA (00:20)
[2024-02-07] MEDS: ACETAMINOPHEN TAB 500 MG TAB PO STA (00:21)
[2024-02-07] MEDS: KETOROLAC 15 MG/ML 1 ML VIAL IVP STA (00:22)
[2024-02-07] MEDS: HYDROmorphone 1 MG/ML 1 ML SYRINGE IVP STA (00:26)
[2024-02-07 01:23] VITALS: BP 121/62; PULSE 78; RESP 15; TEMP 97.5
== END 2024-02-07 00:51 | disposition home or self-care (01) ==
LOC: EC 21:48
DX: S32.008A Other fracture of unspecified lumbar vertebra, initial encounter for closed fracture (principal); V80.010A Animal-rider injured by fall from or being thrown from horse in noncollision accident, initial encounter; Y93.52 Activity, horseback riding
CPT/HCPCS: 72170; 72020; 71045; 72125; 72132; 70450; 71260; 74177; 99285; 96374; 96375; 96361; 96376; J1170 ×2; J1885; S0119; Q9967

== ENCOUNTER 2024-11-02 19:08 | Emergency (ER) | payer BC ==
[2024-11-02 19:27] VITALS: TEMP 98.2
--- NOTE | 2024-11-02 19:36 | ED ---
Lower Extremity Injury HPI - General Chief Complaint: Extremity Injury, Lower Stated Complaint: L foot injury Time Seen by Provider: 11/02/24 19:31 Source: patient, RN notes reviewed Mode of arrival: ambulatory Limitations: no limitations - History of Present Illness Initial Comments: This is a 24-year-old female no significant medical history presents emergency department chief complaint of left foot injury. 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 She denies images at time of the event. States that she is having pain over the left great toe. Is able to ambulate with pain. Has not taken any medications since the time of the injury. No other acute complaints at this time. - Related Data Previous Rx's Medication Instructions Recorded Acetaminophen Tab [Tylenol] 650 mg PO Q6H #30 tab 09/22/23 Ibuprofen [Motrin] 600 mg PO Q6HR PRN #40 tab 09/22/23 oxyCODONE HCL [OxyIR] 5 mg PO Q6H PRN 3 Days #10 tab 09/22/23 HYDROcodone/APAP 10-325MG [[place] 1 tab PO Q6H PRN #12 tab 02/06/24 10-325] Allergies Allergy/AdvReac Type Severity Reaction Status Date / Time No Known Allergies Allergy Verified 11/02/24 19:27 Review of Systems ROS Statement: Those systems with pertinent positive or pertinent negative responses have been documented in the HPI. ROS Other: All systems not noted in ROS Statement are negative. Past Medical History Past Medical History: No Reported History, Pneumonia History of Any Multi-Drug Resistant Organisms: None Reported Past Surgical History: No Surgical Hx Reported Past Anesthesia/Blood Transfusion Reactions: No Reported Reaction Past Psychological History: No Psychological Hx Reported Smoking Status: Vaper Past Alcohol Use History: Rare Past Drug Use History: None Reported - Past Family History Mother Family Medical History: No Reported History Father Family Medical History: Hypertension General Exam Limitations: no limitations General appearance: alert, in no apparent distress ENT exam: Present: normal exam, mucous membranes moist Neck exam: Present: normal inspection. Absent: tenderness, meningismus, lymphadenopathy Respiratory exam: Present: normal lung sounds bilaterally. Absent: respiratory distress, wheezes, rales, rhonchi, stridor Cardiovascular Exam: Present: regular rate, normal rhythm, normal heart sounds. Absent: systolic murmur, diastolic murmur, rubs, gallop, clicks GI/Abdominal exam: Present: soft, normal bowel sounds. Absent: distended, tenderness, guarding, rebound, rigid Left Foot/Toe exam: Present: tenderness, swelling. Absent: deformity, crepitus, dislocation, erythema, puncture wound, nail avulsion, subungual hematoma Neurovascular tendon exam: Absent: no vascular compromise, pulse deficit Gait: observed and limited by pain Back exam: Present: normal inspection Course Vital Signs 11/02/24 19:23 Temperature 98.2 F Pulse Rate 102 H Respiratory 22 Rate Blood Pressure 122/73 O2 Sat by Pulse 99 Oximetry Medical Decision Making - Medical Decision Making Was pt. sent in by a medical professional or institution (, PA, DIVISION OPERATIONS MANAGER, urgent care, hospital, or residential...) When possible be specific @ -No Did you speak to anyone other than the patient for history (EMS, parent, family, police, friend...)? What history was obtained from this source @ -No Did you review nursing and triage notes (agree or disagree)? Why? @ -I reviewed and agree with nursing and triage notes Were old charts reviewed (outside hosp., previous admission, EMS record, old EKG, old radiological studies, urgent care reports/EKG's, residential records)? Report findings @ -No old charts were reviewed Differential Diagnosis (chest pain, altered mental status, abdominal pain women, abdominal pain men, vaginal bleeding, weakness, fever, dyspnea, syncope, headache, dizziness, GI bleed, back pain, seizure, CVA, palpatations, mental health, musculoskeletal)? @ -Differential Musculoskeletal Muscular strain, contusion, ligament sprain, fracture, arthritis, septic arthritis, bursitis, cellulitis, muscle spasm, nerve compression, DVT, arterial occlusion, herpes zoster, electrolyte abnormality, tumor.... This is not meant to be in all inclusive list EKG interpreted by me (3pts min.). @ -none X-rays interpreted by me (1pt min.). @ -X-ray of the left foot no acute fracture or dislocation CT interpreted by me (1pt min.). @ -None done U/S interpreted by me (1pt. min.). @ -None done What testing was considered but not performed or refused? (CT, X-rays, U/S, labs)? Why? @ -None What meds were considered but not given or refused? Why? @ -None Did you discuss the management of the patient with other professionals (kevin back [employer]. , PA, DIVISION OPERATIONS MANAGER, lab, RT, psych nurse, social media designer, fisheries inspector, teacher, complaint evaluation officer, top case assembler)? Give summary @ -No Was smoking cessation discussed for >3mins.? @ -No Was critical care preformed (if so, how long)? @ -No Were there social determinants of health that impacted care today? How? (Homelessness, low income, unemployed, alcoholism, drug addiction, transportation, low edu. Level, literacy, decrease access to med. care, half-way, rehab)? @ -No Was there de-escalation of care discussed even if they declined (Discuss DNR or withdrawal of care, Hospice)? DNR status @ -No What co-morbidities impacted this encounter? (DM, HTN, Smoking, COPD, CAD, Cancer, CVA, ARF, Chemo, Hep., AIDS, mental health diagnosis, sleep apnea, morbid obesity)? @ -None Was patient admitted / discharged? Hospital course, mention meds given and route, prescriptions, significant lab abnormalities, going to OR and other pertinent info. @ -Discharge. 24-year-old female presenting with left foot pain. On evaluation noted to have ecchymosis and edema of the left great toe with no obvious deformity. Neuro vastly intact. Patient is offered Tylenol Motrin, she has declined. She is provided with ice pack and sent for x-ray imaging. X-ray left foot no acute process. Directed the patient today to rest, ice, use Tylenol Motrin as needed for pain relief. Case discussed with Dr. Bueno Undiagnosed new problem with uncertain prognosis? @ -No Drug Therapy requiring intensive monitoring for toxicity (Heparin, Nitro, Insulin, Cardizem)? @ -No Were any procedures done? @ -No Diagnosis/symptom? @ -Contusion of left foot Acute, or Chronic, or Acute on Chronic? @ -Acute Uncomplicated (without systemic symptoms) or Complicated (systemic symptoms)? @ -Uncomplicated Side effects of treatment? @ -No Exacerbation, Progression, or Severe Exacerbation? @ -No Poses a threat to life or bodily function? How? (Chest pain, [place], [place], pneumonia, PE, COPD, DKA, ARF, appy, cholecystitis, CVA, Diverticulitis, Homicidal, Suicidal, threat to staff... and all critical care pts) @ -No Disposition Clinical Impression: Contusion of left foot Disposition: HOME SELF-CARE Condition: Good Instructions (If sedation given, give patient instructions): Foot Sprain (ED) Additional Instructions: Please return to the Emergency Department if symptoms worsen or any other concerns. Is patient prescribed a controlled substance at d/c from ED?: No Referrals: None,Stated [Primary Care Provider] - 1-2 days Time of Disposition: 20:09
--- NOTE | 2024-11-02 19:55 | XR ---
EXAMINATION TYPE: XR foot complete LT DATE OF EXAM: 11/02/2024 CLINICAL HISTORY: Injury with pain TECHNIQUE: Frontal, lateral, and oblique images of the right foot are obtained. COMPARISON: None FINDINGS: Focal moderate soft tissue swelling medial to the first metatarsal head. There is no acute fracture/dislocation evident in the right foot. The joint spaces in the right foot appear within no rmal limits. IMPRESSION: There is no acute fracture or dislocation in the right foot. [facility], , 11/02/2024 7:53 PM
[2024-11-02] MEDS: ACETAMINOPHEN TAB 500 MG TAB PO STA (20:06)
[2024-11-02 20:24] VITALS: BP 115/72; PULSE 92; RESP 18
== END 2024-11-02 20:18 | disposition home or self-care (01) ==
LOC: EC 19:08
DX: S90.32XA Contusion of left foot, initial encounter (principal); F17.290 Nicotine dependence, other tobacco product, uncomplicated; W55.19XA Other contact with horse, initial encounter
CPT/HCPCS: 99283

== ENCOUNTER 2025-04-21 00:04 | Emergency (ER) | payer BC ==
[2025-04-21 00:18] VITALS: RESP 18; TEMP 98.2
--- NOTE | 2025-04-21 00:30 | ED ---
ENT HPI - General Chief complaint: ENT Stated complaint: Nose pain Time Seen by Provider: 04/21/25 00:19 Source: patient, RN notes reviewed Mode of arrival: ambulatory Limitations: no limitations - History of Present Illness Initial comments: This is a 25-year-old female who presents to the emergency department for nose pain. States that she and her friend bumped heads and she had impact to her nose. She has since had discomfort to this area. She is concerned that the nose looks crooked and may need realignment. Denies any bleeding from the nose. - Related Data Previous Rx's Medication Instructions Recorded Acetaminophen Tab [Tylenol] 650 mg PO Q6H #30 tab 09/22/23 Ibuprofen [Motrin] 600 mg PO Q6HR PRN #40 tab 09/22/23 oxyCODONE HCL [OxyIR] 5 mg PO Q6H PRN 3 Days #10 tab 09/22/23 HYDROcodone/APAP 10-325MG [[place] 1 tab PO Q6H PRN #12 tab 02/06/24 10-325] Allergies Allergy/AdvReac Type Severity Reaction Status Date / Time No Known Allergies Allergy Verified 04/21/25 00:15 Review of Systems ROS Statement: Those systems with pertinent positive or pertinent negative responses have been documented in the HPI. ROS Other: All systems not noted in ROS Statement are negative. Past Medical History Past Medical History: No Reported History, Pneumonia History of Any Multi-Drug Resistant Organisms: None Reported Past Surgical History: No Surgical Hx Reported Past Anesthesia/Blood Transfusion Reactions: No Reported Reaction Past Psychological History: No Psychological Hx Reported Smoking Status: Vaper Past Alcohol Use History: Rare Past Drug Use History: Marijuana - Past Family History Mother Family Medical History: No Reported History Father Family Medical History: Hypertension General Exam Limitations: no limitations General appearance: alert, in no apparent distress Head exam: Present: atraumatic, normocephalic, normal inspection ENT exam: Present: other (Mild tenderness over the nasal bridge. No septal hematoma bilaterally. No recent or active epistaxis.) Respiratory exam: Present: normal lung sounds bilaterally. Absent: respiratory distress, wheezes, rales, rhonchi, stridor Cardiovascular Exam: Present: regular rate, normal rhythm Neurological exam: Present: alert, oriented X3, CN II-XII intact Psychiatric exam: Present: normal affect, normal mood Skin exam: Present: warm, dry, intact, normal color. Absent: rash Course Vital Signs 04/21/25 04/21/25 00:15 01:38 Temperature 98.2 F 98.2 F Pulse Rate 90 94 Respiratory 18 18 Rate Blood Pressure 117/77 97/58 O2 Sat by Pulse 98 98 Oximetry Medical Decision Making - Medical Decision Making This is a 25-year-old female who presents to the emergency department for nasal pain. Was pt. sent in by a medical professional or institution? @ -No Did you speak to anyone other than the patient for history? @ -No Did you review nursing and triage notes? @ -Yes, and I agree, it is accurate with regards to the patient's symptoms. Were old charts reviewed? @ -No Differential Diagnosis? @ -Nasal fracture, nasal contusion, sinusitis, this is not meant to be an all- inclusive list. EKG interpreted by me (3pts min.)? @ -Not obtained X-rays interpreted by me (1pt min.)? @ -X-ray of the nasal bones obtained. My interpretation identifies no acute fractures. CT interpreted by me (1pt min.)? @ -Not obtained U/S interpreted by me (1pt. min.)? @ -Not obtained What testing was considered but not performed? (CT, X-rays, U/S, labs)? Why? @ -None What meds were considered but not given? Why? @ -None Did you discuss the management of the patient with other professionals? @ -No Did you reconcile home meds? @ -No Was smoking cessation discussed for >3mins.? @ -No Was critical care preformed (if so, how long)? @ -No Were there social determinants of health that impacted care today? How? (Homelessness, low income, unemployed, alcoholism, drug addiction, transportation, low edu. Level, literacy, decrease access to med. care, correction, rehab)? @ -No Was there de-escalation of care discussed even if they declined? (Discuss DNR or withdrawal of care, Hospice)? @ -No What co-morbidities impacted this encounter? (DM, HTN, Smoking, COPD, CAD, Cancer, CVA, Hep., AIDS, mental health diagnosis, sleep apnea, morbid obesity)? @ -None Was patient admitted / discharged? @ -Discharged. X-ray of the nasal bones obtained revealing no acute process. Her nose did appear aligned on exam. With manipulation she did not exhibit any substantial discomfort. She had no nasal bleeding or signs of a septal hematoma. Advised that symptoms are most likely related to a nasal contusion and no realignment is necessary. Advised ibuprofen and Tylenol as needed for discomfort. Patient discharged home in stable condition. Case discussed with ED attending Dr. Lopez. Return precautions reviewed in depth, the patient is instructed to return to the emergency department with any new, worsening, or concerning symptoms. Patient verbalized understanding. Undiagnosed new problem with uncertain prognosis? @ -None Drug Therapy requiring intensive monitoring for toxicity (Heparin, Nitro, Insulin, Cardizem)? @ -None Were any procedures done? @ -None Diagnosis/symptom? @ -Nasal contusion Acute, or Chronic, or Acute on Chronic? @ -Acute Uncomplicated (without systemic symptoms) or Complicated (systemic symptoms)? @ -Uncomplicated Side effects of treatment? @ -None Exacerbation, Progression, or Severe Exacerbation] @ -Not applicable Poses a threat to life or bodily function? @ -No - Radiology Data Radiology results: report reviewed, image reviewed Disposition Clinical Impression: Nasal contusion Disposition: HOME SELF-CARE Instructions (If sedation given, give patient instructions): Nasal Contusion (ED) Additional Instructions: Return to the emergency department with any new, worsening, or concerning symptoms. Alternate with ibuprofen and Tylenol as needed for discomfort. Follow up with your primary care provider in 1-2 days. Is patient prescribed a controlled substance at d/c from ED?: No Referrals: None,Stated [Primary Care Provider] - 1-2 days Time of Disposition: 01:17
[2025-04-21 01:43] VITALS: BP 97/58; PULSE 94
--- NOTE | 2025-04-21 01:43 | XR ---
EXAM: XR Nasal Bones, 3 or More Views CLINICAL HISTORY: ITS.REASON XR Reason: Injury TECHNIQUE: Frontal and lateral views of the nasal bones. COMPARISON: No relevant prior studies available. FINDINGS: Bones/joints: No acute fracture. No dislocation. Sinuses: Unremarkable. No air-fluid levels. Soft tissues: Unremarkable. IMPRESSION: No acute osseous findings.
== END 2025-04-21 01:44 | disposition home or self-care (01) ==
LOC: EC 00:04
DX: S00.33XA Contusion of nose, initial encounter (principal); F17.290 Nicotine dependence, other tobacco product, uncomplicated; W51.XXXA Accidental striking against or bumped into by another person, initial encounter
CPT/HCPCS: 70160; 99283